=== PATIENT | male | born 2000 | race Caucasian/White ===

== ENCOUNTER 2021-10-21 06:38 | Emergency (ER) | payer OTHER ==
[2021-10-21] MEDS ORDERED: TYLENOL325 MG PO (06:58)
== END 2021-10-21 07:37 | disposition home or self-care (01) ==
LOC: ED 06:38
DX: S82.831A Other fracture of upper and lower end of right fibula, initial encounter for closed fracture (principal); V86.96XA Unspecified occupant of dirt bike or motor/cross bike injured in nontraffic accident, initial encounter
CPT/HCPCS: 73560; 99283-25

== ENCOUNTER 2023-10-29 23:56 | Emergency (ER) | payer SELFPAY ==
[~2023-10-29] VITALS: Ht 193 cm; Wt 84.5 kg
[~2023-10-29 23:56] MED LIST: TYLENOL325 MG PO
[2023-10-30] MEDS ORDERED: PRED FORTE5 ML OU (00:26)
[2023-10-30 00:43] VITALS: BP 135/74
== END 2023-10-30 00:43 | disposition home or self-care (01) ==
LOC: ED 23:56
DX: H10.89 Other conjunctivitis (principal); T66.XXXA Radiation sickness, unspecified, initial encounter; W89.8XXA Exposure to other man-made visible and ultraviolet light, initial encounter